=== PATIENT | male | born 1965 | race Two or more races ===

== ENCOUNTER 2023-06-07 00:04 | Emergency (ER) | payer OTHER ==
[~2023-06-07] VITALS: Ht 175.3 cm; Wt 81.6 kg
[2023-06-07] MEDS ORDERED: ZESTRIL2.5 MG (00:19)
== END 2023-06-07 02:27 | disposition home or self-care (01) ==
LOC: ER 00:04
DX: S90.121A Contusion of right lesser toe(s) without damage to nail, initial encounter (principal); X58.XXXA Exposure to other specified factors, initial encounter; Y93.89 Activity, other specified; Y92.89 Other specified places as the place of occurrence of the external cause; Y99.8 Other external cause status